=== PATIENT | male | born 2005 | race Caucasian/White ===

== ENCOUNTER 2025-07-30 09:29 | Outpatient (CLI) | payer BC, SELFPAY ==
--- NOTE | ~2025-07-30 | XR_ITS ---
XR lumbar spine 6V w bending Indication: Pain in back Comparison: None Findings: No fracture identified, no subluxation with flexion and extension The disc heights are intact. Soft tissues unremarkable Impression: No acute abnormality. Reviewed, dictated and finalized at location P. CRINOLOGY PHYSICIAN Impression: No acute abnormality.
== END 2025-07-30 09:30 | disposition home or self-care (01) ==
DX: M54.50 Low back pain, unspecified (principal)
CPT/HCPCS: 72114